=== PATIENT | female | born 1990 | race African-American/Black ===

== ENCOUNTER 2021-01-23 14:43 | Emergency (ER) | payer MEDICAID, OTHER ==
[~2021-01-23] VITALS: Ht 160 cm; Wt 54.0 kg
[2021-01-23 14:55] VITALS: BP 117/76
== END 2021-01-23 16:50 | disposition left against medical advice (07) ==
LOC: ER 14:43
DX: Z53.21 Procedure and treatment not carried out due to patient leaving prior to being seen by health care provider (principal)